=== PATIENT | female | born 1995 | race African-American/Black ===

== ENCOUNTER 2019-12-20 16:08 | Emergency (ER) | payer OTHER ==
[~2019-12-20] VITALS: Ht 160 cm; Wt 117.9 kg
[2019-12-20] MEDS ORDERED: LEVAQUIN 500 M500 M3 PO (16:18)
[2019-12-20 16:47] LABS: ABSOLUTE NEUTROPHILS 2.5 thou/uL (1.4-8.2); BASOPHILS 0.5 % (0.0-2.0); EOSINOPHILS 2.4 % (0.0-3.0); HEMATOCRIT 38.7 % (37.0-47.0); HEMOGLOBIN 13.1 gm/dL (12.0-15.0); LYMPHOCYTES 34.2 % (24.0-44.0); MCH 28.6 pg (26.0-34.0); MCHC 33.8 g/dL (28.0-37.0); MCV 84.7 fL (80.0-100.0); MONOCYTES 9.1 % (1.0-8.0); PLATELET COUNT 253 thou/uL (150-400); POLYS 53.8 % (36.0-66.0); RBC 4.57 mil/uL (4.20-5.00); RDW 13.7 % (10.5-14.5); WBC 4.6 thou/uL (4.0-11.0)
[2019-12-20 16:56] LABS: CALCIUM 8.7 mg/dL (8.5-10.1); CREATININE 0.8 mg/dL (0.6-1.0); POTASSIUM 3.8 mmol/L (3.5-5.1)
[2019-12-20 17:01] LABS: URINE BILIRUBIN NEGATIVE (Negative); URINE BLOOD NEGATIVE (Negative); URINE CLARITY CLEAR; URINE COLOR YELLOW; URINE GLUCOSE-RANDOM* NEGATIVE (Negative); URINE KETONES NEGATIVE (Negative); URINE LEUKOCYTES-REFLEX NEGATIVE (Negative); URINE NITRITE-REFLEX NEGATIVE (Negative); URINE PROTEIN (DIPSTICK) NEGATIVE (Negative); URINE UROBILINOGEN 0.2 E.U./dl (0.2-1.0)
[2019-12-20 17:02] LABS: ALBUMIN 3.6 g/dL (3.4-5.0); TOTAL BILIRUBIN 0.4 mg/dL (0.2-1.0); TOTAL PROTEIN 7.7 g/dL (6.4-8.2)
[2019-12-20 17:15] LABS: AMP/METHAMP Negative (Negative); BARBITURATES Negative (Negative); BENZODIAZEPINES Negative (Negative); COCAINE Negative (Negative); METHADONE Negative (Negative); OPIATES Negative (Negative); PCP Negative (Negative)
[2019-12-20] MEDS ORDERED: PREDNISONE 20 M20 M1 PO ×2 (18:54→19:02)
[2019-12-20] MEDS ORDERED: CIPRODEX OTIC7.5 ML OTIC ×2 (18:54→19:02)
[2019-12-20 19:09] VITALS: BP 121/70
--- NOTE | 2019-12-21 09:04 | EKG ---
[facility] [place] [address] ELECTROCARDIOGRAM REPORT Name: SONU MOORE Room #: DEP [facility].#: [id number] Admission: 12/20/19 Attend Phys: Discharge: 12/20/19 Date of : [birth year] Report #: [id number] THIS REPORT FOR: cc: Michael Watson K. Steven DO Lundgren, Craig H. 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[facility] : 1995 Requested By: Cornelia Benjamin Order Number: [id number] MD: Johnathan Manley Measurements Intervals [place] Rate: 68 P: 59 [place]: 196 QRS: -4 QRSD: 96 T: 40 QT: 382 QTc: 407 Interpretive Statements Sinus rhythm Normal tracing No previous ECG available for comparison Electronically Signed On 12-21-2019 9:04:43 CDT by Johnathan Manley [email or web address] <ELECTRONICALLY SIGNED> By: Johnathan Manley MD, [facility] 12/21/19 0904 03 03 Johnathan Manley MD, [facility] /EPI
== END 2019-12-20 19:09 ==
LOC: ER 16:08
PROVIDERS: Physician Assistant
DX: R06.02 Shortness of breath (principal); H60.92 Unspecified otitis externa, left ear; R11.10 Vomiting, unspecified; G43.909 Migraine, unspecified, not intractable, without status migrainosus; Z79.2 Long term (current) use of antibiotics

== ENCOUNTER 2019-12-22 09:37 | Inpatient (IN) | payer OTHER ==
[~2019-12-22] VITALS: Ht 160 cm; Wt 121.6 kg
--- NOTE | ~2019-12-22 | EEG ---
[facility] [place] [place] [address] ELECTROENCEPHALOGRAM Name: SONU ZAYAS Room #: 449-I [facility] IN M.R.#: [id number] Admission: 12/22/19 Attend Phys: Syl Abbasi MD Discharge: Date of : [birth year] Report #: [id number] THIS REPORT FOR: //name// CC: Michael Flannery This patient's EEG was done to evaluate the possibility of seizure. EEG was done by placing the electrode by standard 10-20 system of electrode placement. Both referential and sequential montages were used for recording. Background activity in this patient's EEG is about 11 Hz and 30 microvolt. The patient became drowsy and that is associated with bilateral slowing. Photic stimulation is unremarkable. Throughout the record, no active epileptiform activity was noticed. IMPRESSION: This patient's EEG is unremarkable. Thank you very much for this referral. By: [id number] Kolton Flannery MD /nt
--- NOTE | ~2019-12-22 | HC ---
[facility] [place] [address] CONSULTATION Name: SONU ZAYAS Room #: 449-I ADM IN .R.#: [id number] Admission: 12/22/19 Attend Phys: Syl Abbasi MD Discharge: Date of : [birth year] Report #: [id number] THIS REPORT FOR: cc: Michael Watson K. Steven DO Khosla,Kolton Rodriguez MD ~ CC: Michael Flannery DATE OF SERVICE: 12/22/2019 HISTORY OF PRESENT ILLNESS: This is a 24-year-old female patient who was discussed with the Emergency Room physician. This patient provides a very unusual history of spells, which has been well described in another area development consultant's notes and will not be repeated here. She has been to multiple Emergency Rooms. She has a CT scan of the head done in [facility] as per history. I do not have those results. It was reported as normal both according to the mother as well as the patient. REVIEW OF SYSTEMS: Indicates she denies any anxiety. She said she does not take any psychiatric medication. She had an EEG and I reviewed and that was unremarkable. She is complaining of some chest pain, breathing difficulties, some unusual reaction to amoxicillin. This was a relevant 14-point review of system. PAST MEDICAL HISTORY: Negative for these kind of spell, but she is having multiple nonspecific symptoms now. FAMILY HISTORY: Unremarkable. SOCIAL HISTORY: She said she has worked for 5 years at the same job. She does not drink any alcohol or smoke. PHYSICAL EXAMINATION: The patient's examinations indicate she is alert. She is responsive. She is able to follow simple and complex command. Her cranial nerve examinations appear unremarkable. She does everything very slowly, but she is able to do that. When I do the position sense, she gets everything right, but takes a long time to do it. Her reflexes are present. There is no meningeal sign. Her hearing and vision looks adequate. Blood pressure is 144/82, respirations 17, pulse is 78, temperature is 97.8. LABORATORY DATA: Her white count is normal. She had a TSH done, which was also unremarkable. I do not have any imaging study for review. 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 I will do [facility] [address] [place] [address] CONSULTATION Name: MARQUEZSONU [facility] #: [facility] IN .R.#: [id number] Admission: 12/22/19 Attend Phys: Syl Abbasi MD Discharge: Date of : [birth year] Report #: [id number] some other workup to exclude any other pathology. Mother and the daughter tell me that there is no contraindication for doing an MRI. I will try to schedule an MRI. I have already looked at the EEG and that shows no seizure activity, we will await a psychiatric consult. If they think there is some psychogenic spells involved with it, they can treat accordingly. Otherwise, she needs to be transferred to some facility where video monitored EEG is available. That can be at [facility] or . In the meantime, I will try to get her CT of the head from [facility] because I was told that is where it was done. Thank you very much for this referral and if you have any questions, please feel free to contact me. I spent about 50 minutes of time taking care of this patient and majority of that time was spent counseling, coordinating, talking to other health customer care specialist and reviewing her data in the computer. By: 02 10 Kolton Flannery MD /nt
--- NOTE | ~2019-12-22 | EMS ---
[address] [address] EMS Patient Care Report Name: SONU ZAYAS Room #: PRE HEATHER M.RJoao#: [id number] Admission: Attend Phys: Discharge: Date of : [birth year] Report #: [id number] THIS REPORT FOR: //name// Report Transmitted: 12/22/2019 09:31 EMS Care Summary [place], [place]/[facility] Incident [id number] @ 12/22/2019 09:04 Incident Location [address] [place] [address] Patient SONU MOORE Female, 24 Years 1995 Patient Address [address] [place] [address] Patient History Other, Patient Allergies Iodine, Patient Medications Cipro, Albuterol, Prednisone, Chief Complaint CHEST PAIN INSPIRATION CAUSING SOB Disposition Transported No Lights/[place] Dispatch Reason Sick Person Transported To [facility] Narrative UPON ARRIVAL PT SUPINE ON COUCH CONSCIOUS AND ALERT. PT C/O WEAKNESS WITH SOME SOB FOR A WEEK NOW. PT BEGAN HAVING CHEST PAIN THE DEEPER SHE BREATHS THIS MORNING. [place] [id number] EMS Patient Care Report Name: SONU ZAYAS Room #: PRE Barrett.#: [id number] Admission: Attend Phys: Discharge: Date of : [birth year] Report #: [id number] Initial Vitals @:P: 65,CO: 6,SpO2: 98, @:P: 60,R: 16,BP: 110/75,GCS: 15,CO: 4,SpO2: 99,Revised Trauma: 12, @09:09P: 71,R: 16,BP: 135/85,Pain: 4/10,GCS: 15,SpO2: 99,Revised Trauma: 12, Assessments @09:08MENTAL:Person Oriented,Time Oriented,Event Oriented,Place Oriented,SKIN:HEENT:Head/Face: No Abnormalities,LUNG SOUNDS:General: No Abnormalities,ABDOMEN:General: No Abnormalities,PELVIS//GI:EXTREMITIES:Left Arm: No Abnormalities,Right Arm: No Abnormalities,Left Leg: No Abnormalities,Right Leg: No Abnormalities,PULSE:Radial: 2+ Normal,NEURO:No Abnormalities, Impression Chest pain on breathing Procedures @09:08ALS AssessmentResponse: UnchangedSucceeded Timeline :01,Call Received :,Dispatch Notified 09:04,Dispatched 09:04,En Route 09:06,On Scene 09:07,At Patient 09:08,ALS Assessment,Response: UnchangedSucceeded, 09:09,BP: 135/85 M,PULSE: 71,RR: 16 R,SPO2: 99 Ox,ETCO2: ,BG: ,PAIN: 4,GCS: 15, 09:19,Depart Scene 09:19,BP: / M,PULSE: 65,RR: R,SPO2: 98 Ox,ETCO2: ,BG: ,PAIN: ,GCS: , 09:29,BP: 110/75 M,PULSE: 60,RR: 16 R,SPO2: 99 Ox,ETCO2: ,BG: ,PAIN: ,GCS: 15, 09:34,At Destination 09:45,Call Closed Disclaimer v1.1 Copyright 2020 [employer] This EMS Care Summary contains data elements from the applicable legal record (which may be displayed differently). It is designed to provide pertinent information for the following purposes: continuity of care, clinical quality, and state data reporting. The complete legal record is available to ED staff and administrators of the receiving hospital in [employer] Patient Tracker. All data is provided "as is."
[~2019-12-22 09:37] MED LIST: CIPRODEX OTIC7.5 ML OTIC; LEVAQUIN 500 M500 M3 PO; PREDNISONE 20 M20 M1 PO
[2019-12-22 09:45] VITALS: BP 139/86
[2019-12-22 10:28] LABS: ABSOLUTE NEUTROPHILS 3.6 thou/uL (1.4-8.2); BASOPHILS 0.8 % (0.0-2.0); EOSINOPHILS 0.4 % (0.0-3.0); HEMATOCRIT 40.5 % (37.0-47.0); HEMOGLOBIN 13.3 gm/dL (12.0-15.0); LYMPHOCYTES 38.5 % (24.0-44.0); MCH 28.4 pg (26.0-34.0); MCHC 32.9 g/dL (28.0-37.0); MCV 86.2 fL (80.0-100.0); MONOCYTES 7.6 % (1.0-8.0); PLATELET COUNT 276 thou/uL (150-400); POLYS 52.7 % (36.0-66.0); RBC 4.69 mil/uL (4.20-5.00); RDW 13.6 % (10.5-14.5); WBC 6.8 thou/uL (4.0-11.0)
[2019-12-22 10:36] LABS: ANION GAP 10 mmol/L (7-16); BUN 8 mg/dL (7-18); CALCIUM 8.7 mg/dL (8.5-10.1); CHLORIDE 104 mmol/L (98-107); CO2 30 mmol/L (21-32); CREATININE 0.8 mg/dL (0.6-1.0); GLUCOSE 97 mg/dL (74-106); POTASSIUM 3.8 mmol/L (3.5-5.1); SODIUM 144 mmol/L (136-145)
[2019-12-22 10:45] LABS: TROPONIN-I <0.06 ng/mL (<0.06)
[2019-12-22 17:20] VITALS: BP 144/82
[2019-12-22 18:25] VITALS: BP 144/82
[2019-12-22 19:32] VITALS: BP 121/82
--- NOTE | 2019-12-22 22:29 | NUR ---
ASSUMED CARE OF PT AT APPROXIMATELY 1900. PT IS A/O X4, AND UP AD LILLI. ABLE TO MAKE NEEDS KNOWN. VSS. NO C/O PAIN OR DISCOMFORT. PT AT THIS TIME IS LYING IN HER BED WATCHING TV. WILL CONTINUE TO MONITOR.
[2019-12-23 05:51] LABS: BASOPHILS 0.7 % (0.0-2.0); EOSINOPHILS 2.1 % (0.0-3.0); HEMATOCRIT 40.2 % (37.0-47.0); HEMOGLOBIN 13.3 gm/dL (12.0-15.0); LYMPHOCYTES 53.1 % (24.0-44.0); MCH 28.3 pg (26.0-34.0); MCV 85.9 fL (80.0-100.0); PLATELET COUNT 279 thou/uL (150-400); POLYS 35.1 % (36.0-66.0); RBC 4.68 mil/uL (4.20-5.00); RDW 13.8 % (10.5-14.5); WBC 5.7 thou/uL (4.0-11.0)
[2019-12-23 06:05] LABS: CALCIUM 8.5 mg/dL (8.5-10.1); CREATININE 0.8 mg/dL (0.6-1.0); POTASSIUM 4.2 mmol/L (3.5-5.1)
[2019-12-23 07:32] VITALS: BP 118/80
--- NOTE | 2019-12-23 11:33 | EKG ---
[facility] [place] [address] [place] [address] ELECTROCARDIOGRAM REPORT Name: SONU ZAYAS Room #: 449-I ADM IN M.R.#: [id number] Admission: 12/22/19 Attend Phys: Syl Abbasi MD Discharge: Date of : [birth year] Report #: [id number] THIS REPORT FOR: cc: Michael Watson K. Steven DO Couchonnal, Luis F. 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
--- NOTE | 2019-12-23 11:58 | NUR ---
Assumed pt care at 7am.Pt in bed resting without c/o.Assessment completed.vss. Pt up to bathroom as needed.Pt has good appetite.Dr Thayer and Maryjane here, order noted.Pt in bed waiting for Dr Avendano to see here.Mom at visiting at present.Will continue to monitor.
[2019-12-23 15:06] VITALS: BP 102/63
[2019-12-23 17:54] VITALS: BP 102/63
== END 2019-12-23 19:25 | disposition home or self-care (01) | DRG 101 ==
LOC: ER 09:37 → EROBS 14:04 → 4W 18:07
PROVIDERS: Emergency Medicine; Nurse Practitioner; ADMIT Internal Medicine; ATTEND Internal Medicine
DX: R56.9 Unspecified convulsions (principal); Z68.42 Body mass index [BMI] 45.0-49.9, adult; E66.01 Morbid (severe) obesity due to excess calories; R06.02 Shortness of breath; R07.9 Chest pain, unspecified; R91.1 Solitary pulmonary nodule; Z79.2 Long term (current) use of antibiotics; Z79.899 Other long term (current) drug therapy; Z88.1 Allergy status to other antibiotic agents; Z91.013 Allergy to seafood; Z91.09 Other allergy status, other than to drugs and biological substances
CPT/HCPCS: 10045

== ENCOUNTER 2020-01-02 18:15 | Emergency (ER) | payer OTHER ==
[~2020-01-02] VITALS: Ht 160 cm; Wt 117.9 kg
[2020-01-02] MEDS ORDERED: KEFLEX500 M1 PO (19:54)
[2020-01-02 20:21] VITALS: BP 143/86
[2020-01-04 20:02] LABS: HSV PCR SOURCE BLISTER
== END 2020-01-02 20:21 | disposition home or self-care (01) ==
LOC: ER 18:15
PROVIDERS: Physician Assistant
DX: L73.9 Follicular disorder, unspecified (principal); L03.317 Cellulitis of buttock; H92.02 Otalgia, left ear; E66.01 Morbid (severe) obesity due to excess calories; Z68.42 Body mass index [BMI] 45.0-49.9, adult; Z88.1 Allergy status to other antibiotic agents; Z91.013 Allergy to seafood

== ENCOUNTER 2020-01-11 12:01 | Emergency (ER) | payer OTHER ==
[~2020-01-11] VITALS: Ht 160 cm; Wt 117.9 kg
[~2020-01-11 12:01] MED LIST changes: +KEFLEX500 M1 PO
[2020-01-11 14:37] VITALS: BP 127/79
[2020-01-13 08:13] LABS: HSV PCR SOURCE VAGINAL
== END 2020-01-11 14:37 | disposition home or self-care (01) ==
LOC: ER 12:01
PROVIDERS: Nurse Practitioner
DX: N94.89 Other specified conditions associated with female genital organs and menstrual cycle (principal); N89.8 Other specified noninflammatory disorders of vagina; R10.2 Pelvic and perineal pain; Z88.1 Allergy status to other antibiotic agents; Z91.013 Allergy to seafood

== ENCOUNTER 2020-12-13 06:46 | Emergency (ER) | payer OTHER ==
[~2020-12-13] VITALS: Ht 160 cm; Wt 117.5 kg
--- NOTE | ~2020-12-13 | EMS ---
[facility] [address] [place] [address] EMS Patient Care Report Name: SONU MOORE Room #: DEP HEATHER Blankenship#: [id number] Admission: 12/13/20 Attend Phys: Discharge: 12/13/20 Date of : [birth year] Report #: [id number] THIS REPORT FOR: //name// Report Transmitted: 12/16/2020 14:08 EMS Care Summary [place], [place]/[facility] Incident [id number] @ 12/13/2020 06:18 Incident Location [address] [place] [address] Patient SONU MOORE Female, 25 Years 1995 Patient Address [address] [place] [address] Chief Complaint covid-19 positive Disposition Transported No Lights/[place] Dispatch Reason Breathing Problem Transported To [facility] Narrative M42 arrived on scene to find the patient sitting upright on the couch. Patient said she tested positive last Wednesday for covid-19. Patient said she had progressively been feeling worse and worse. Patient said she jefferson been running a fever and a had a cough. Patient said she had been feeling short of breath and it had gotten worse. A n95 mask was placed on the patient. Patient said she had vomited once. Patient said her mother had gotten covid-19 and was in the hospital for it. Exhaust fan was turned on in the back. En route to the hospital no changes in the patient condition occurred. M42 arrived on scene of the hospital and patient care was transferred to the RN. Initial Vitals [facility] [address] [place] [address] EMS Patient Care Report Name: SONU MOORE Room #: DEP Pattie#: [id number] Admission: 12/13/20 Attend Phys: Discharge: 12/13/20 Date of : [birth year] Report #: [id number] @06:29P: 36,SpO2: 100, @06:31P: 123,BP: 64/30,SpO2: 95, @06:32P: 118,R: 16,BP: 102/69,Pain: 0/10,GCS: 15,CO: 2,SpO2: 95,Revised Trauma: 12, @06:29P: 118,R: 16,BP: 110/78,Pain: 0/10,GCS: 15,CO: 3,SpO2: 95,Revised Trauma: 12, Assessments @06:26MENTAL:No Abnormalities,SKIN:No Abnormalities,HEENT:Head/Face: No Abnormalities,Eyes: No Abnormalities,Neck/Airway: No Abnormalities,LUNG SOUNDS:General: No Abnormalities,Left Upper: No Abnormalities,Right Upper: No Abnormalities,Left Lower: No Abnormalities,Right Lower: No Abnormalities,ABDOMEN:General: No Abnormalities,Left Upper: No Abnormalities,Right Upper: No Abnormalities,Left Lower: No Abnormalities,Right Lower: No Abnormalities,PELVIS//GI:No Abnormalities,EXTREMITIES:Left Arm: No Abnormalities,Right Arm: No Abnormalities,Left Leg: No Abnormalities,Right Leg: No Abnormalities,PULSE:NEURO:No Abnormalities,@06:34MENTAL:No Abnormalities,SKIN:No Abnormalities,HEENT:Head/Face: No Abnormalities,Eyes: No Abnormalities,Neck/Airway: No Abnormalities,LUNG SOUNDS:General: No Abnormalities,Left Upper: No Abnormalities,Right Upper: No Abnormalities,Left Lower: No Abnormalities,Right Lower: No Abnormalities,ABDOMEN:General: No Abnormalities,Left Upper: No Abnormalities,Right Upper: No Abnormalities,Left Lower: No Abnormalities,Right Lower: No Abnormalities,PELVIS//GI:No Abnormalities,EXTREMITIES:Left Arm: No Abnormalities,Right Arm: No Abnormalities,Left Leg: No Abnormalities,Right Leg: No Abnormalities,PULSE:NEURO:No Abnormalities, Impression COVID-19 - Confirmed by testing Procedures @06:26ALS AssessmentResponse: UnchangedSucceeded Timeline 06:16,Call Received 06:16,Dispatch Notified 06:18,Dispatched 06:19,En Route 06:24,On Scene 06:26,At Patient 06:26,ALS Assessment,Response: UnchangedSucceeded, 06:29,BP: / M,PULSE: 36,RR: R,SPO2: 100 Ox,ETCO2: ,BG: ,PAIN: ,GCS: , 06:29,BP: 110/78 M,PULSE: 118,RR: 16 R,SPO2: 95 Ox,ETCO2: ,BG: ,PAIN: 0,GCS: 15, 06:30,Depart Scene 06:31,BP: 64/30 M,PULSE: 123,RR: R,SPO2: 95 Ox,ETCO2: ,BG: ,PAIN: ,GCS: , [address] [address] EMS Patient Care Report Name: SONU MOORE Room #: DEP HEATHER Blankenship#: [id number] Admission: 12/13/20 Attend Phys: Discharge: 12/13/20 Date of : [birth year] Report #: [id number] 06:32,BP: 102/69 M,PULSE: 118,RR: 16 R,SPO2: 95 Ox,ETCO2: ,BG: ,PAIN: 0,GCS: 15, 06:43,At Destination 06:53,Call Closed Disclaimer v1.1 Copyright 2020 [employer] This EMS Care Summary contains data elements from the applicable legal record (which may be displayed differently). It is designed to provide pertinent information for the following purposes: continuity of care, clinical quality, and state data reporting. The complete legal record is available to ED staff and administrators of the receiving hospital in [employer]'s Patient Tracker. All data is provided "as is."
[2020-12-13 08:33] VITALS: BP 122/70
== END 2020-12-13 08:33 | disposition home or self-care (01) ==
LOC: ER 06:46
DX: U07.1 COVID-19 (principal); M79.10 Myalgia, unspecified site; R53.83 Other fatigue; R63.0 Anorexia; Z88.1 Allergy status to other antibiotic agents; Z91.013 Allergy to seafood

== ENCOUNTER 2021-01-10 15:19 | Emergency (ER) | payer OTHER ==
[~2021-01-10] VITALS: Ht 160 cm; Wt 111.1 kg
[2021-01-10] MEDS ORDERED: HYDROXYZINE HCL25 M2 PO ×2 (16:40→16:43)
[2021-01-10 16:43] VITALS: BP 118/74
--- NOTE | 2021-01-14 07:33 | EKG ---
[place] [address] [place] [address] ELECTROCARDIOGRAM REPORT Name: SONU MOORE Room #: DEP HEATHER Blankenship#: [id number] Admission: 01/10/21 Attend Phys: Discharge: 01/10/21 Date of : [birth year] Report #: [id number] [facility] ED Test Date: 2021-01-10 Test Time: 16:06:53 Pat Name: SONU MOORE Department: Room: Gender: F [employer]: : 1995 Requested By: Rai Schroeder Order Number: [id number] MD: Edgar Portillo Measurements Intervals [place] Rate: 102 P: 47 [place]: 166 QRS: -19 QRSD: 91 T: 35 QT: 329 QTc: 429 Interpretive Statements Sinus tachycardia LVH by voltage Compared to ECG 12/22/2019 10:02:04 Sinus rhythm no longer present Electronically Signed On 01-14-2021 7:32:59 CDT by Edgar Portillo [email or web address] <ELECTRONICALLY SIGNED> By: Edgar Portillo MD, [facility] 01/14/21 0732 1606 1606 Edgar Portillo MD, FACC /EPI
== END 2021-01-10 16:43 | disposition home or self-care (01) ==
LOC: ER 15:19
DX: F41.9 Anxiety disorder, unspecified (principal); Z20.822 Contact with and (suspected) exposure to COVID-19; R55 Syncope and collapse; E66.01 Morbid (severe) obesity due to excess calories; Z88.1 Allergy status to other antibiotic agents; Z91.013 Allergy to seafood; Z68.41 Body mass index [BMI] 40.0-44.9, adult